=== PATIENT | female | born 1955 | race Caucasian/White ===

== ENCOUNTER 2018-07-18 12:42 | Emergency (ER) | payer MEDICARE, MEDICAID ==
[~2018-07-18] VITALS: Ht 162.6 cm; Wt 53.0 kg
[2018-07-18 17:44] VITALS: BP 162/84
== END 2018-07-18 21:30 | disposition left against medical advice (07) ==
LOC: ER 13:15
DX: H57.11 Ocular pain, right eye (principal); Z53.21 Procedure and treatment not carried out due to patient leaving prior to being seen by health care provider